=== PATIENT | female | born 1995 | race Hispanic/Latino ===

== ENCOUNTER 2016-12-29 13:38 | Emergency (ER) | payer BC ==
[2016-12-29 13:54] VITALS: BP 116/67; PULSE 82; RESP 18; TEMP 98.3; O2SAT 100
--- NOTE | 2016-12-29 14:18 | ED PDOC ---
HPI: General Adult Time Seen by Provider: 12/29/16 13:42 Chief Complaint (Nursing): Anxiety Chief Complaint (Provider): Anxiety History Per: Patient History/Exam Limitations: no limitations Onset/Duration Of Symptoms: Hrs Current Symptoms Are (Timing): Still Present Severity: Mild Additional Complaint(s): Patient is a 21 year old female presenting to the ED complaining of anxiety since earlier today. Patient reports she started hyperventilating and crying when she was about to go to work 2 hours ago. 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 PT states she does not want that position and is scared to tell her boss because her boss is too mean. Patient has had anxiety in the past and was on medication. Patient has a history of Depression and Anxiety. Denies any Suicidal ideation or homicidal ideation. PMD: none Past Medical History Reviewed: Historical Data, Nursing Documentation, Vital Signs Vital Signs: Last Vital Signs Temp 98.3 F 12/29/16 13:50 Pulse 82 12/29/16 13:50 Resp 18 12/29/16 13:50 BP 116/67 12/29/16 13:50 Pulse Ox 100 12/29/16 14:20 - Medical History PMH: Anxiety, Depression - Surgical History Surgical History: No Surg Hx - Family History Family History: States: No Known Family Hx - Social History Current smoker - smoking cessation education provided: No Alcohol: None Drugs: Denies - Home Medications Home Medications: Ambulatory Orders Medication Instructions Recorded No Known Home Med 12/29/16 - Allergies Allergies/Adverse Reactions: Allergies Allergy/AdvReac Type Severity Reaction Status Date / Time lactose Allergy other Verified 12/29/16 14:24 Review of Systems ROS Statement: Except As Marked, All Systems Reviewed And Found Negative Constitutional: Negative for: Fever Psych: Positive for: Anxiety. Negative for: Suicidal ideation Physical Exam - Reviewed Nursing Documentation Reviewed: Yes Vital Signs Reviewed: Yes - Physical Exam Appears: Positive for: Well (tearful), Non-toxic, No Acute Distress Head Exam: Positive for: ATRAUMATIC, NORMAL INSPECTION, NORMOCEPHALIC Skin: Positive for: Normal Color, Warm, DRY Eye Exam: Positive for: Normal appearance, EOMI Neck: Positive for: Normal, Painless ROM Cardiovascular/Chest: Positive for: Regular Rate, Rhythm. Negative for: Gallop , Murmur Respiratory: Positive for: Normal Breath Sounds. Negative for: Accessory Muscle Use, Rhonchi, Respiratory Distress Extremity: Positive for: Normal ROM Neurologic/Psych: Positive for: Alert, Oriented, Mood/Affect (anxious) - ECG O2 Sat by Pulse Oximetry: 100 (RA) Pulse Ox Interpretation: Normal Medical Decision Making Medical Decision Making: Time: 13:45 Impression: anxiety Plan: Patient denies anxiety medication now. Advised to confront her boss about overwhelming stress. Patient feels better. Discussed results and plan with patient who expresses understanding. Counseling was provided regarding the diagnosis and prognosis. All questions answered and there is agreement with the plan to discharge home with instructions. Patient stable for discharge. Return if symptoms persist or worsen. Scribe Attestation: Documented by Rut Alvarez acting as a scribe for Nicky Duenas. Provider Attestation: All medical record entries made by the Scribe were at my direction and personally dictated by me. I have reviewed the chart and agree that the record accurately reflects my personal performance of the history, physical exam, medical decision making, and the department course for this patient. I have also personally directed, reviewed, and agree with the discharge instructions and disposition. Disposition - Clinical Impression Clinical Impression: Anxiety attack - Patient ED Disposition Is Patient to be Admitted: No Counseled Patient/Family Regarding: Studies Performed, Diagnosis - Disposition Disposition: Routine/Home Disposition Time: 14:20 Condition: STABLE Instructions: Anxiety (ED) Forms: [facility] ED School/Work Excuse
== END 2016-12-29 14:29 | disposition home or self-care (01) ==
LOC: H.ER 13:38
DX: F41.1 Generalized anxiety disorder (principal); F32.9 Major depressive disorder, single episode, unspecified